=== PATIENT | female | born 1955 | race Caucasian/White ===

== ENCOUNTER 2018-07-08 16:31 | Emergency (ER) | payer OTHER ==
[~2018-07-08] VITALS: Ht 172.7 cm; Wt 55.8 kg
[~2018-07-08 16:31] MED LIST: FIORICET1 TAB PO; FLEXERIL10 MG PO; LAC PO; LEVAQUIN750 MG PO; PYRIDIUM200 MG PO
[2018-07-08 18:02] LABS: BASOPHIL % 0.3 % (0-2); PLATELET COUNT 188 x10^3mcL (130-400)
[2018-07-08 18:09] LABS: CALCIUM 9.3 mg/dL (8.5-10.1); CARBON DIOXIDE 28.2 mmol/L (21-32); CHLORIDE SERUM 105 mmol/L (98-107); CREATININE SERUM 0.8 mg/dL (0.6-1.0); GFR1 > 60 mL/min; GLUCOSE SERUM 171 mg/dL (74-106); POTASSIUM SERUM 4.1 mmol/L (3.5-5.1); SODIUM SERUM 144 mmol/L (136-145)
[2018-07-08 18:14] LABS: ALBUMIN 4.3 g/dL (3.4-5.0); ALKALINE PHOSPHATASE 72 U/L (46-116); ALT/SGPT 18 U/L (14-59); AST/SGOT 12 U/L (15-37); BILIRUBIN TOTAL 0.38 mg/dL (0.20-1.00); LIPASE 121 IU/L (73-393); TOTAL PROTEIN, SERUM 8.1 g/dL (6.4-8.2)
[2018-07-08 18:36] LABS: UA SPECIFIC GRAVITY >=1.030 (1.005-1.035); microscopic required? YES; urine erythrocyte NEGATIVE (NEGATIVE)
[2018-07-08 20:46] VITALS: BP 146/69
== END 2018-07-08 20:46 | disposition home or self-care (01) ==
LOC: ED 16:31
PROVIDERS: Emergency Medicine
DX: R10.32 Left lower quadrant pain (principal); I10 Essential (primary) hypertension; E11.9 Type 2 diabetes mellitus without complications
CPT/HCPCS: J1885; J7030

== ENCOUNTER 2018-07-31 14:54 | Emergency (ER) | payer MEDICAID ==
[2018-07-31 15:02] VITALS: Ht 162.6 cm
[2018-07-31 16:50] LABS: BASOPHIL % 0.6 % (0-2); PLATELET COUNT 207 x10^3mcL (130-400); RED CELL DISTRIBUTION WIDTH 13.7 % (11.5-14.5)
[2018-07-31 16:54] LABS: CALCIUM 9.3 mg/dL (8.5-10.1); CARBON DIOXIDE 31.2 mmol/L (21-32); CHLORIDE SERUM 100 mmol/L (98-107); CREATININE SERUM 0.9 mg/dL (0.6-1.0); GFR1 > 60 mL/min; GLUCOSE SERUM 131 mg/dL (74-106); POTASSIUM SERUM 3.8 mmol/L (3.5-5.1); SODIUM SERUM 138 mmol/L (136-145)
[2018-07-31 19:22] VITALS: BP 115/66
== END 2018-07-31 19:22 | disposition home or self-care (01) ==
LOC: ED 14:54
PROVIDERS: Emergency Medicine
DX: R51 Headache (principal); I10 Essential (primary) hypertension; E11.9 Type 2 diabetes mellitus without complications; Z86.73 Personal history of transient ischemic attack (TIA), and cerebral infarction without residual deficits; Z87.442 Personal history of urinary calculi
CPT/HCPCS: J1200; J1885; J2765; J3490

== ENCOUNTER 2018-08-16 12:51 | Emergency (ER) | payer OTHER ==
[~2018-08-16] VITALS: Ht 170.2 cm; Wt 56.7 kg
[2018-08-16 12:56] VITALS: Ht 170.2 cm; Wt 56.7 kg
[2018-08-16 13:58] LABS: CARBON DIOXIDE 26.8 mmol/L (21-32); CHLORIDE SERUM 101 mmol/L (98-107); CREATININE SERUM 0.8 mg/dL (0.6-1.0); GFR1 > 60 mL/min; GLUCOSE SERUM 256 mg/dL (74-106); POTASSIUM SERUM 3.9 mmol/L (3.5-5.1); SODIUM SERUM 137 mmol/L (136-145)
[2018-08-16 14:11] LABS: BASOPHIL % 0.3 % (0-2); PLATELET COUNT 205 x10^3mcL (130-400); RED CELL DISTRIBUTION WIDTH 13.1 % (11.5-14.5)
[2018-08-16 14:29] VITALS: BP 120/75
== END 2018-08-16 14:29 | disposition home or self-care (01) ==
LOC: ED 12:51
PROVIDERS: Emergency Medicine
DX: R51 Headache (principal); I10 Essential (primary) hypertension; E11.9 Type 2 diabetes mellitus without complications; Z87.442 Personal history of urinary calculi; Z86.73 Personal history of transient ischemic attack (TIA), and cerebral infarction without residual deficits
CPT/HCPCS: J2765; J3010

== ENCOUNTER 2018-10-06 21:27 | Emergency (ER) | payer OTHER ==
[2018-10-06 21:45] VITALS: Ht 167.6 cm
[2018-10-06 23:44] LABS: BASOPHIL % 0.5 % (0-2); PLATELET COUNT 202 x10^3mcL (130-400); RED CELL DISTRIBUTION WIDTH 13.3 % (11.5-14.5)
[2018-10-06 23:53] LABS: CALCIUM 9.2 mg/dL (8.5-10.1); CARBON DIOXIDE 31.3 mmol/L (21-32); CHLORIDE SERUM 97 mmol/L (98-107); CREATININE SERUM 0.9 mg/dL (0.6-1.0); GFR1 > 60 mL/min; GLUCOSE SERUM 168 mg/dL (74-106); POTASSIUM SERUM 3.9 mmol/L (3.5-5.1); SODIUM SERUM 138 mmol/L (136-145)
[2018-10-06 23:57] LABS: ALKALINE PHOSPHATASE 61 U/L (46-116); ALT/SGPT 29 U/L (14-59); AST/SGOT 18 U/L (15-37); BILIRUBIN TOTAL 0.3 mg/dL (0.20-1.00); LIPASE 129 IU/L (73-393); TOTAL PROTEIN, SERUM 7.8 g/dL (6.4-8.2)
[2018-10-07 00:44] VITALS: BP 135/77
== END 2018-10-07 00:44 | disposition home or self-care (01) ==
LOC: ED 21:27
PROVIDERS: Emergency Medicine
DX: R10.32 Left lower quadrant pain (principal); E11.9 Type 2 diabetes mellitus without complications; I10 Essential (primary) hypertension; Z86.73 Personal history of transient ischemic attack (TIA), and cerebral infarction without residual deficits; Z87.442 Personal history of urinary calculi; Z98.890 Other specified postprocedural states
CPT/HCPCS: J1885

== ENCOUNTER 2018-10-16 14:26 | Emergency (ER) | payer OTHER ==
[2018-10-16 15:59] VITALS: BP 153/81
== END 2018-10-16 15:59 | disposition home or self-care (01) ==
LOC: ED 14:26
DX: S09.8XXA Other specified injuries of head, initial encounter (principal); S20.219A Contusion of unspecified front wall of thorax, initial encounter; R10.9 Unspecified abdominal pain; M25.519 Pain in unspecified shoulder; I10 Essential (primary) hypertension; E11.9 Type 2 diabetes mellitus without complications; Z86.73 Personal history of transient ischemic attack (TIA), and cerebral infarction without residual deficits; Z87.442 Personal history of urinary calculi; W18.11XA Fall from or off toilet without subsequent striking against object, initial encounter; Y93.89 Activity, other specified; Y92.89 Other specified places as the place of occurrence of the external cause; Y99.8 Other external cause status
CPT/HCPCS: Q0092

== ENCOUNTER 2018-10-25 18:17 | Inpatient (IN) | payer OTHER ==
[~2018-10-25] VITALS: Ht 167.6 cm; Wt 70.5 kg
[2018-10-25 18:19] VITALS: Ht 167.6 cm; Wt 70.5 kg
[2018-10-25 19:00] LABS: CARBON DIOXIDE 28.7 mmol/L (21-32); CHLORIDE SERUM 99 mmol/L (98-107); CREATININE SERUM 0.8 mg/dL (0.6-1.0); GFR1 > 60 mL/min; GLUCOSE SERUM 217 mg/dL (74-106); POTASSIUM SERUM 4.3 mmol/L (3.5-5.1); SODIUM SERUM 138 mmol/L (136-145)
[2018-10-25 19:05] LABS: ALKALINE PHOSPHATASE 56 U/L (46-116); ALT/SGPT 22 U/L (14-59); AST/SGOT 14 U/L (15-37); BILIRUBIN TOTAL 0.3 mg/dL (0.20-1.00); TOTAL PROTEIN, SERUM 7.4 g/dL (6.4-8.2)
[2018-10-25 19:06] LABS: BASOPHIL % 0.7 % (0-2); PLATELET COUNT 215 x10^3mcL (130-400); RED CELL DISTRIBUTION WIDTH 13.3 % (11.5-14.5)
[2018-10-25 19:49] LABS: MAGNESIUM 1.7 mg/dL (1.8-2.4); PHOSPHOROUS 3.2 mg/dL (2.5-4.9)
[2018-10-25 20:46] VITALS: BP 115/73
[2018-10-26 04:25] VITALS: BP 130/68
[2018-10-26 06:06] LABS: BASOPHIL % 0.5 % (0-2); PLATELET COUNT 174 x10^3mcL (130-400); RED CELL DISTRIBUTION WIDTH 13.1 % (11.5-14.5)
[2018-10-26 06:26] LABS: CALCIUM 8.4 mg/dL (8.5-10.1); CARBON DIOXIDE 31.6 mmol/L (21-32); CHLORIDE SERUM 103 mmol/L (98-107); CREATININE SERUM 0.7 mg/dL (0.6-1.0); GFR1 > 60 mL/min; GLUCOSE SERUM 121 mg/dL (74-106); MAGNESIUM 1.9 mg/dL (1.8-2.4); PHOSPHOROUS 3.4 mg/dL (2.5-4.9); POTASSIUM SERUM 4.1 mmol/L (3.5-5.1); SODIUM SERUM 138 mmol/L (136-145)
[2018-10-26 08:45] VITALS: BP 102/43
[2018-10-26 11:25] LABS: microscopic required? NO
[2018-10-26 12:48] LABS: UA SPECIFIC GRAVITY 1.015 (1.005-1.035); urine erythrocyte NEGATIVE (NEGATIVE)
[2018-10-26 12:54] VITALS: BP 142/74
[2018-10-26 16:58] VITALS: BP 148/65
[2018-10-26 21:18] VITALS: BP 152/69
[2018-10-27 05:13] VITALS: BP 145/70
[2018-10-27 06:14] LABS: CALCIUM 9.2 mg/dL (8.5-10.1); CHLORIDE SERUM 104 mmol/L (98-107); CREATININE SERUM 0.7 mg/dL (0.6-1.0); GFR1 > 60 mL/min; GLUCOSE SERUM 149 mg/dL (74-106); POTASSIUM SERUM 4.3 mmol/L (3.5-5.1); SODIUM SERUM 143 mmol/L (136-145)
[2018-10-27 06:38] LABS: BASOPHIL % 0.7 % (0-2); PLATELET COUNT 198 x10^3mcL (130-400); RED CELL DISTRIBUTION WIDTH 12.9 % (11.5-14.5)
[2018-10-27 08:51] VITALS: BP 131/69
[2018-10-27 12:40] VITALS: BP 160/70
[2018-10-27 18:50] VITALS: BP 134/72
[2018-10-27 21:51] VITALS: BP 115/60
[2018-10-28 04:37] VITALS: BP 139/59
[2018-10-28 07:17] LABS: CALCIUM 8.9 mg/dL (8.5-10.1); CARBON DIOXIDE 30.8 mmol/L (21-32); CHLORIDE SERUM 104 mmol/L (98-107); CREATININE SERUM 0.8 mg/dL (0.6-1.0); GFR1 > 60 mL/min; GLUCOSE SERUM 116 mg/dL (74-106); MAGNESIUM 1.7 mg/dL (1.8-2.4); POTASSIUM SERUM 4.1 mmol/L (3.5-5.1); SODIUM SERUM 140 mmol/L (136-145)
[2018-10-28 07:45] LABS: BASOPHIL % 0.6 % (0-2); PLATELET COUNT 167 x10^3mcL (130-400); RED CELL DISTRIBUTION WIDTH 12.9 % (11.5-14.5)
[2018-10-28 09:30] VITALS: BP 114/78
[2018-10-28 17:48] VITALS: BP 156/76
[2018-10-28 18:40] VITALS: BP 140/69
[2018-10-28 21:09] VITALS: BP 159/68
[2018-10-29 06:00] VITALS: BP 145/72
[2018-10-29 06:12] LABS: BASOPHIL % 0.3 % (0-2); PLATELET COUNT 181 x10^3mcL (130-400); RED CELL DISTRIBUTION WIDTH 12.8 % (11.5-14.5)
[2018-10-29 06:41] LABS: CALCIUM 9.7 mg/dL (8.5-10.1); CARBON DIOXIDE 29.4 mmol/L (21-32); CHLORIDE SERUM 101 mmol/L (98-107); CREATININE SERUM 0.7 mg/dL (0.6-1.0); GFR1 > 60 mL/min; GLUCOSE SERUM 94 mg/dL (74-106); MAGNESIUM 1.7 mg/dL (1.8-2.4); SODIUM SERUM 140 mmol/L (136-145)
[2018-10-29 09:21] VITALS: BP 136/80
[2018-10-29 13:09] VITALS: BP 164/74
[2018-10-29] MEDS ORDERED: ISOSORBIDE MONO60 MG PO (15:01)
[2018-10-29] MEDS ORDERED: NOR5 PO (15:02)
[2018-10-29] MEDS ORDERED: RANEXA500 M2 PO (15:02)
[2018-10-29] MEDS ORDERED: BENICAR HCT1 TAB PO (15:03)
[2018-10-29 17:30] VITALS: BP 112/58
[2018-10-29 18:02] VITALS: BP 112/58
== END 2018-10-29 19:08 | disposition home or self-care (01) | DRG 203 ==
LOC: ED 18:17 → DU 19:26
PROVIDERS: Emergency Medicine; General Practice
DX: M94.0 Chondrocostal junction syndrome [Tietze] (principal); N17.0 Acute kidney failure with tubular necrosis; I50.21 Acute systolic (congestive) heart failure; E11.65 Type 2 diabetes mellitus with hyperglycemia; I69.954 Hemiplegia and hemiparesis following unspecified cerebrovascular disease affecting left non-dominant side; D68.69 Other thrombophilia; I11.0 Hypertensive heart disease with heart failure; E03.9 Hypothyroidism, unspecified; Z79.01 Long term (current) use of anticoagulants; I69.922 Dysarthria following unspecified cerebrovascular disease
CPT/HCPCS: 82962; 83880; A9500; J0360; J1815; J2270; J2405; J2785; J7030; Q0092

== ENCOUNTER 2018-10-31 17:04 | Emergency (ER) | payer OTHER ==
[~2018-10-31 17:04] MED LIST changes: +BENICAR HCT1 TAB PO; +ISOSORBIDE MONO60 MG PO; +NOR5 PO; +RANEXA500 M2 PO
[2018-10-31 18:26] VITALS: BP 148/74
== END 2018-10-31 18:26 | disposition home or self-care (01) ==
LOC: ED 17:04
DX: I10 Essential (primary) hypertension (principal); K21.9 Gastro-esophageal reflux disease without esophagitis; E11.9 Type 2 diabetes mellitus without complications; Z86.73 Personal history of transient ischemic attack (TIA), and cerebral infarction without residual deficits; Z87.442 Personal history of urinary calculi

== ENCOUNTER 2018-11-11 16:39 | Emergency (ER) | payer OTHER ==
[~2018-11-11] VITALS: Ht 165.1 cm; Wt 72.6 kg
[2018-11-11 16:54] VITALS: Ht 165.1 cm; Wt 72.6 kg
[2018-11-11 17:52] LABS: BASOPHIL % 0.5 % (0-2); PLATELET COUNT 207 x10^3mcL (130-400)
[2018-11-11 17:54] LABS: CALCIUM 8.6 mg/dL (8.5-10.1); CHLORIDE SERUM 102 mmol/L (98-107); CREATININE SERUM 0.9 mg/dL (0.6-1.0); GFR1 > 60 mL/min; GLUCOSE SERUM 214 mg/dL (74-106); SODIUM SERUM 137 mmol/L (136-145)
[2018-11-11 17:59] LABS: ALBUMIN 3.8 g/dL (3.4-5.0); ALKALINE PHOSPHATASE 62 U/L (46-116); ALT/SGPT 28 U/L (14-59); AST/SGOT 17 U/L (15-37); BILIRUBIN TOTAL 0.37 mg/dL (0.20-1.00); TOTAL PROTEIN, SERUM 7.3 g/dL (6.4-8.2)
[2018-11-11 19:51] VITALS: BP 138/77
== END 2018-11-11 19:51 | disposition home or self-care (01) ==
LOC: ED 16:39
PROVIDERS: Emergency Medicine
DX: R07.89 Other chest pain (principal); I10 Essential (primary) hypertension; E11.9 Type 2 diabetes mellitus without complications; Z86.73 Personal history of transient ischemic attack (TIA), and cerebral infarction without residual deficits; Z87.442 Personal history of urinary calculi; Z95.5 Presence of coronary angioplasty implant and graft
CPT/HCPCS: 36415; 83880; Q0092

== ENCOUNTER 2018-11-19 12:59 | Emergency (ER) | payer OTHER | END 2018-11-19 16:14 | disposition home or self-care (01) | LOC: ED 12:59 ==

== ENCOUNTER 2018-12-13 12:39 | Emergency (ER) | payer OTHER ==
[~2018-12-13] VITALS: Ht 170.2 cm; Wt 61.7 kg
[2018-12-13 12:44] VITALS: Ht 170.2 cm; Wt 61.7 kg
[2018-12-13 14:35] LABS: BASOPHIL % 0.5 % (0-2); PLATELET COUNT 189 x10^3mcL (130-400); RED CELL DISTRIBUTION WIDTH 12.7 % (11.5-14.5)
[2018-12-13 14:41] LABS: CALCIUM 8.5 mg/dL (8.5-10.1); CARBON DIOXIDE 29.2 mmol/L (21-32); CHLORIDE SERUM 100 mmol/L (98-107); CREATININE SERUM 0.7 mg/dL (0.6-1.0); GFR1 > 60 mL/min; GLUCOSE SERUM 265 mg/dL (74-106); POTASSIUM SERUM 4.6 mmol/L (3.5-5.1); SODIUM SERUM 135 mmol/L (136-145)
[2018-12-13 14:45] LABS: ALBUMIN 3.4 g/dL (3.4-5.0); ALKALINE PHOSPHATASE 71 U/L (46-116); ALT/SGPT 35 U/L (14-59); AST/SGOT 26 U/L (15-37); BILIRUBIN TOTAL 0.3 mg/dL (0.20-1.00); TOTAL PROTEIN, SERUM 6.9 g/dL (6.4-8.2)
[2018-12-13 15:52] VITALS: BP 153/84
== END 2018-12-13 15:52 | disposition home or self-care (01) ==
LOC: ED 12:39
PROVIDERS: Emergency Medicine
DX: R07.89 Other chest pain (principal); R47.01 Aphasia; Z86.73 Personal history of transient ischemic attack (TIA), and cerebral infarction without residual deficits; I10 Essential (primary) hypertension; E11.9 Type 2 diabetes mellitus without complications; Z87.442 Personal history of urinary calculi; I45.2 Bifascicular block
CPT/HCPCS: 36415; J7030; Q0092

== ENCOUNTER 2018-12-19 16:54 | Emergency (ER) | payer OTHER ==
[~2018-12-19] VITALS: Ht 170.2 cm; Wt 61.2 kg
[2018-12-19 17:10] VITALS: Ht 170.2 cm; Wt 61.2 kg
[2018-12-19 19:13] VITALS: BP 132/71
== END 2018-12-19 20:06 | disposition home or self-care (01) ==
LOC: ED 16:54
DX: K59.00 Constipation, unspecified (principal); Z86.73 Personal history of transient ischemic attack (TIA), and cerebral infarction without residual deficits; I10 Essential (primary) hypertension; E11.9 Type 2 diabetes mellitus without complications; Z87.442 Personal history of urinary calculi
CPT/HCPCS: 82962

== ENCOUNTER 2019-01-14 14:10 | Emergency (ER) | payer OTHER ==
[~2019-01-14] VITALS: Ht 167.6 cm; Wt 61.2 kg
[2019-01-14 14:16] VITALS: Ht 167.6 cm; Wt 61.2 kg
[2019-01-14 15:43] LABS: BASOPHIL % 0.6 % (0-2); PLATELET COUNT 241 x10^3mcL (130-400); RED CELL DISTRIBUTION WIDTH 12.8 % (11.5-14.5)
[2019-01-14 15:44] LABS: CARBON DIOXIDE 26.7 mmol/L (21-32); CHLORIDE SERUM 101 mmol/L (98-107); CREATININE SERUM 0.8 mg/dL (0.6-1.0); GFR1 > 60 mL/min; GLUCOSE SERUM 238 mg/dL (74-106); POTASSIUM SERUM 3.9 mmol/L (3.5-5.1); SODIUM SERUM 137 mmol/L (136-145)
[2019-01-14 15:51] LABS: ALBUMIN 3.7 g/dL (3.4-5.0); ALKALINE PHOSPHATASE 87 U/L (46-116); ALT/SGPT 34 U/L (14-59); AST/SGOT 20 U/L (15-37); BILIRUBIN TOTAL 0.3 mg/dL (0.20-1.00); TOTAL PROTEIN, SERUM 7.6 g/dL (6.4-8.2)
[2019-01-14 16:35] VITALS: BP 150/81
== END 2019-01-14 16:35 | disposition home or self-care (01) ==
LOC: ED 14:10
PROVIDERS: Emergency Medicine
DX: J20.9 Acute bronchitis, unspecified (principal); I10 Essential (primary) hypertension; E11.9 Type 2 diabetes mellitus without complications; Z86.73 Personal history of transient ischemic attack (TIA), and cerebral infarction without residual deficits; Z87.442 Personal history of urinary calculi; Z95.5 Presence of coronary angioplasty implant and graft
CPT/HCPCS: 36415; 87804; Q0092

== ENCOUNTER 2019-01-19 20:30 | Emergency (ER) | payer OTHER ==
[~2019-01-19] VITALS: Ht 167.6 cm; Wt 63.5 kg
[2019-01-19 20:48] VITALS: Ht 167.6 cm; Wt 63.5 kg
[2019-01-19 22:17] VITALS: BP 132/74
== END 2019-01-19 22:17 | disposition home or self-care (01) ==
LOC: ED 20:30
DX: S39.012A Strain of muscle, fascia and tendon of lower back, initial encounter (principal); R47.01 Aphasia; W18.39XA Other fall on same level, initial encounter; Y93.01 Activity, walking, marching and hiking; Y92.091 Bathroom in other non-institutional residence as the place of occurrence of the external cause; Y99.8 Other external cause status

== ENCOUNTER 2019-01-25 14:44 | Emergency (ER) | payer OTHER ==
[~2019-01-25] VITALS: Ht 172.7 cm; Wt 62.6 kg
[2019-01-25 14:59] VITALS: Ht 172.7 cm; Wt 62.6 kg
[2019-01-25 18:22] VITALS: BP 144/76
== END 2019-01-25 18:22 | disposition home or self-care (01) ==
LOC: ED 14:44
DX: E11.65 Type 2 diabetes mellitus with hyperglycemia (principal); I10 Essential (primary) hypertension; Z86.73 Personal history of transient ischemic attack (TIA), and cerebral infarction without residual deficits; Z87.442 Personal history of urinary calculi; Z95.5 Presence of coronary angioplasty implant and graft
CPT/HCPCS: 82962

== ENCOUNTER 2019-03-19 15:55 | Observation (INO) | payer OTHER ==
[~2019-03-19] VITALS: Ht 167.6 cm; Wt 61.3 kg
[2019-03-19 17:49] LABS: microscopic required? NO
[2019-03-19 18:06] LABS: CALCIUM 9.2 mg/dL (8.5-10.1); CARBON DIOXIDE 28.8 mmol/L (21-32); CHLORIDE SERUM 99 mmol/L (98-107); CREATININE SERUM 0.8 mg/dL (0.6-1.0); GFR1 > 60 mL/min; GLUCOSE SERUM 142 mg/dL (74-106); POTASSIUM SERUM 4.1 mmol/L (3.5-5.1); SODIUM SERUM 136 mmol/L (136-145)
[2019-03-19 18:07] LABS: BASOPHIL % 0.3 % (0-2); PLATELET COUNT 186 x10^3mcL (130-400); RED CELL DISTRIBUTION WIDTH 13.6 % (11.5-14.5)
[2019-03-19 18:09] LABS: urine erythrocyte NEGATIVE (NEGATIVE)
[2019-03-19 18:19] LABS: ALBUMIN 4.3 g/dL (3.4-5.0); ALKALINE PHOSPHATASE 77 U/L (46-116); ALT/SGPT 66 U/L (14-59); AST/SGOT 30 U/L (15-37); BILIRUBIN TOTAL 0.59 mg/dL (0.20-1.00); FREE T4 1.17 ng/dL (0.76-1.46); TOTAL PROTEIN, SERUM 7.8 g/dL (6.4-8.2)
[2019-03-19 18:33] LABS: AMPHETAMINE QUAL UR NONE DETECTED (See below)
[2019-03-19 21:44] LABS: MAGNESIUM 1.4 mg/dL (1.8-2.4); PHOSPHOROUS 3.2 mg/dL (2.5-4.9)
[2019-03-19 23:02] LABS: CHOLESTEROL/HDL RATIO 3.4
[2019-03-19 23:07] VITALS: BP 146/76
[2019-03-19 23:15] VITALS: Ht 167.6 cm; Wt 61.3 kg
[2019-03-20 05:58] VITALS: BP 130/69
[2019-03-20 06:55] LABS: BASOPHIL % 0.4 % (0-2); PLATELET COUNT 186 x10^3mcL (130-400); RED CELL DISTRIBUTION WIDTH 13.1 % (11.5-14.5)
[2019-03-20 07:02] LABS: CALCIUM 8.9 mg/dL (8.5-10.1); CARBON DIOXIDE 26.1 mmol/L (21-32); CHLORIDE SERUM 100 mmol/L (98-107); CREATININE SERUM 0.6 mg/dL (0.6-1.0); GFR1 > 60 mL/min; GLUCOSE SERUM 145 mg/dL (74-106); POTASSIUM SERUM 3.2 mmol/L (3.5-5.1); SODIUM SERUM 138 mmol/L (136-145)
[2019-03-20 08:56] VITALS: BP 115/71
[2019-03-20] MEDS ORDERED: LOSARTAN POTASS1 TAB PO (12:39)
[2019-03-20] MEDS ORDERED: OXYBUTYNIN CHLOR5 MG PO (12:39)
[2019-03-20] MEDS ORDERED: ATORVASTATIN CA40 M1 PO (12:41)
[2019-03-20] MEDS ORDERED: PAM10 PO (12:41)
[2019-03-20] MEDS ORDERED: PAROXETINE HCL20 M1 PO (12:42)
[2019-03-20 12:43] VITALS: BP 129/72
[2019-03-20 16:32] VITALS: BP 149/78
[2019-03-20 20:35] VITALS: BP 134/76
[2019-03-21 06:05] VITALS: BP 122/76
[2019-03-21 06:46] LABS: CALCIUM 9.1 mg/dL (8.5-10.1); CARBON DIOXIDE 29.2 mmol/L (21-32); CHLORIDE SERUM 100 mmol/L (98-107); CREATININE SERUM 0.6 mg/dL (0.6-1.0); GFR1 > 60 mL/min; GLUCOSE SERUM 168 mg/dL (74-106); MAGNESIUM 1.8 mg/dL (1.8-2.4); PHOSPHOROUS 3.5 mg/dL (2.5-4.9); SODIUM SERUM 137 mmol/L (136-145)
[2019-03-21 07:52] LABS: PLATELET COUNT 170 x10^3mcL (130-400); RED CELL DISTRIBUTION WIDTH 13.5 % (11.5-14.5)
[2019-03-21 07:53] LABS: BASOPHIL % 0.1 % (0-2)
[2019-03-21 09:14] VITALS: BP 128/71
[2019-03-21 12:39] VITALS: BP 117/69
[2019-03-21 13:51] VITALS: BP 117/69
[2019-03-21] MEDS ORDERED: ONDANSETRON4 M3 PO (14:05)
== END 2019-03-21 18:04 | disposition home or self-care (01) | DRG 203 ==
LOC: ED 15:55 → DU 21:23
PROVIDERS: Emergency Medicine; ADMIT Family Medicine
DX: M94.0 Chondrocostal junction syndrome [Tietze] (principal); K31.84 Gastroparesis; E83.42 Hypomagnesemia; E11.43 Type 2 diabetes mellitus with diabetic autonomic (poly)neuropathy; I11.9 Hypertensive heart disease without heart failure; G44.209 Tension-type headache, unspecified, not intractable; R74.0 Nonspecific elevation of levels of transaminase and lactic acid dehydrogenase [LDH]; I25.10 Atherosclerotic heart disease of native coronary artery without angina pectoris; I45.10 Unspecified right bundle-branch block; Z86.73 Personal history of transient ischemic attack (TIA), and cerebral infarction without residual deficits; Z95.5 Presence of coronary angioplasty implant and graft; Z68.21 Body mass index [BMI] 21.0-21.9, adult
CPT/HCPCS: 82962; 83880; 84439; 87804; G0378; J1885; J2270; J2405; J2550; J2765; J3010; J3475; J7050; J8597; Q0092

== ENCOUNTER 2019-03-31 18:24 | Emergency (ER) | payer OTHER ==
[~2019-03-31] VITALS: Ht 170.2 cm; Wt 62.1 kg
[~2019-03-31 18:24] MED LIST changes: +ATORVASTATIN CA40 M1 PO; +LOSARTAN POTASS1 TAB PO; +ONDANSETRON4 M3 PO; +OXYBUTYNIN CHLOR5 MG PO; +PAM10 PO; +PAROXETINE HCL20 M1 PO
[2019-03-31 18:44] VITALS: Ht 170.2 cm; Wt 62.1 kg
[2019-03-31 22:04] VITALS: BP 157/86
== END 2019-03-31 22:04 | disposition home or self-care (01) ==
LOC: ED 18:24
DX: S30.0XXA Contusion of lower back and pelvis, initial encounter (principal); I10 Essential (primary) hypertension; X58.XXXA Exposure to other specified factors, initial encounter; Y93.89 Activity, other specified; Y92.89 Other specified places as the place of occurrence of the external cause; Y99.8 Other external cause status
CPT/HCPCS: 72072; J1885

== ENCOUNTER 2019-04-10 16:03 | Emergency (ER) | payer OTHER ==
[~2019-04-10] VITALS: Ht 170.2 cm; Wt 61.7 kg
[2019-04-10 16:11] VITALS: BP 139/96; Ht 170.2 cm; Wt 61.7 kg
== END 2019-04-10 19:01 | disposition home or self-care (01) ==
LOC: ED 16:03
DX: G44.209 Tension-type headache, unspecified, not intractable (principal); I10 Essential (primary) hypertension; E11.9 Type 2 diabetes mellitus without complications; Z87.442 Personal history of urinary calculi; Z98.890 Other specified postprocedural states
CPT/HCPCS: J0780; J1885; J3010; Q0092

== ENCOUNTER 2019-04-17 20:24 | Emergency (ER) | payer OTHER ==
[~2019-04-17] VITALS: Ht 170.2 cm; Wt 62.2 kg
[2019-04-17 20:27] VITALS: Ht 170.2 cm; Wt 62.2 kg
[2019-04-17 21:03] LABS: BASOPHIL % 0.4 % (0-2); PLATELET COUNT 187 x10^3mcL (130-400); RED CELL DISTRIBUTION WIDTH 13.2 % (11.5-14.5)
[2019-04-17 21:09] LABS: CALCIUM 9.2 mg/dL (8.5-10.1); CARBON DIOXIDE 30.3 mmol/L (21-32); CHLORIDE SERUM 101 mmol/L (98-107); CREATININE SERUM 0.7 mg/dL (0.6-1.0); GFR1 > 60 mL/min; GLUCOSE SERUM 115 mg/dL (74-106); POTASSIUM SERUM 3.9 mmol/L (3.5-5.1); SODIUM SERUM 138 mmol/L (136-145)
[2019-04-17 21:13] LABS: ALKALINE PHOSPHATASE 71 U/L (46-116); ALT/SGPT 93 U/L (14-59); AST/SGOT 41 U/L (15-37); BILIRUBIN TOTAL 0.6 mg/dL (0.20-1.00); LIPASE 112 IU/L (73-393); TOTAL PROTEIN, SERUM 7.1 g/dL (6.4-8.2)
[2019-04-17 22:54] VITALS: BP 168/87
== END 2019-04-17 22:54 | disposition home or self-care (01) ==
LOC: ED 20:24
PROVIDERS: Emergency Medicine
DX: G89.29 Other chronic pain (principal); R10.32 Left lower quadrant pain
CPT/HCPCS: 36415

== ENCOUNTER 2019-05-04 15:15 | Inpatient (IN) | payer OTHER ==
[~2019-05-04] VITALS: Ht 172.7 cm; Wt 61.7 kg
[2019-05-04 15:27] VITALS: Ht 172.7 cm; Wt 61.7 kg
--- NOTE | 2019-05-04 16:02 | NUR ---
PATIENT PRESENTS TO ED WITH C/O LLQ ABDOMINAL PAIN THAT PATIENT DESCRIBES SHARP SINCE YESTERDAY. PATIENT STS SHE HAS BEEN HAVING NAUSEA AND VOMITTING. DENIES PAIN ELSEWHERE. AWAITING MSE
[2019-05-04 16:24] LABS: BASOPHIL % 0.4 % (0-2); PLATELET COUNT 209 x10^3mcL (130-400); RED CELL DISTRIBUTION WIDTH 13.3 % (11.5-14.5)
--- NOTE | 2019-05-04 16:25 | NUR ---
INITIATED NS BOLUS AND MEDICATED PT FOR PAIN. PLEASE SEE EMAR .
[2019-05-04 16:36] LABS: microscopic required? NO
--- NOTE | 2019-05-04 16:42 | NUR ---
PT SENT TO CT
[2019-05-04 16:43] LABS: CALCIUM 8.8 mg/dL (8.5-10.1); CARBON DIOXIDE 27.5 mmol/L (21-32); CHLORIDE SERUM 99 mmol/L (98-107); CREATININE SERUM 0.9 mg/dL (0.6-1.0); GFR1 > 60 mL/min; GLUCOSE SERUM 322 mg/dL (74-106); POTASSIUM SERUM 4.2 mmol/L (3.5-5.1); SODIUM SERUM 136 mmol/L (136-145)
[2019-05-04 16:48] LABS: ALBUMIN 3.9 g/dL (3.4-5.0); ALKALINE PHOSPHATASE 85 U/L (46-116); ALT/SGPT 101 U/L (14-59); AST/SGOT 40 U/L (15-37); BILIRUBIN TOTAL 0.4 mg/dL (0.20-1.00); LIPASE 224 IU/L (73-393); TOTAL PROTEIN, SERUM 7.3 g/dL (6.4-8.2)
[2019-05-04 16:50] LABS: UA SPECIFIC GRAVITY 1.015 (1.005-1.035); urine erythrocyte NEGATIVE (NEGATIVE)
--- NOTE | 2019-05-04 17:38 | NUR ---
PT RESTING AT BEDSIDE IN NAD. FAMILY AT BEDSIDE.
--- NOTE | 2019-05-04 18:18 | NUR ---
PT RESTING AT BEDSIDE IN NAD
--- NOTE | 2019-05-04 19:09 | NUR ---
REPORT OFF TO JESUS SPRINGER
--- NOTE | 2019-05-04 19:10 | NUR ---
RECEIVED REPORT FROM ASIA LEE AND ASSUMED CARE OF PATIENT. PT. LAYING ON GURNEY IN POSITON OF COMFORT. BREATHING EQUAL AND UNLABORED. PT. SPEAKING IN FULL CLEAR SENTENCES, NOT IN ANY APPARENT DISTESS. ON FULL RESULTS TECHNICIAN, NS INFUSING ON IV PUMP, IV SITE CLEAN, DRY AND INTACT. NO S/S OF INFILTRATION. PT. REPORTS 01/19 ABD PAIN. FAMILY AT BEDSIDE. CALL LIGHT IN REACH. SAFETY PRECAUTIONS IN PLACE. WILL CONTINUE TO MONITOR.
--- NOTE | 2019-05-04 19:50 | NUR ---
UNABLE TO COMPLETE MED REC, FAMILY STATES LIST OF MEDS ARE AT HOME AND WILL BRING IT IN LATER.
--- NOTE | 2019-05-04 20:06 | NUR ---
REPORT GIVEN TO YUE LEE ON MED SURG UNIT FOR FURTHER CARE OF PATIENT ALL QUESTIONS AND CONCERNS ADDRESSED.
--- NOTE | 2019-05-04 20:40 | NUR ---
PT. TRANSPRORTED TO [facility] DEPARTMENT VIA [facility] BY EMT SHARLENE. PT. STABLE AT TIME OF TRANSFER.
[2019-05-04 20:54] LABS: MAGNESIUM 2.2 mg/dL (1.8-2.4); PHOSPHOROUS 1.8 mg/dL (2.5-4.9)
[2019-05-04 20:56] LABS: CHOLESTEROL/HDL RATIO 4.7
[2019-05-04 21:03] VITALS: BP 133/98
--- NOTE | 2019-05-04 21:14 | NUR ---
RECEIVED PT FROM ER, PT ADMIT FOR DIVERTICULITIS. PT IS CONFUSED AT THIS MOMENT. PT UNABLE TO TELL NAME, PLACE, TIME, PT STATE SOMETIME SHE FORGET. MAYBE SHE WILL REMEMBER LATER. BUT PT IS ABLE TO FOLLOW COMMAND AT THIS MOMENT, LUNG SOUND CLEAR BILATERAL, NO COUGH, NO SOB, DENY ANY CHEST PAIN OR DISCOMFORT, C/O LEFT LOWER QUADRANT ABD PAIN 4/10, BOWEL SOUND PRESENT ALL 4 QUADRANTS, NO DISTENTION, PEDAL PULSE PRESENT BOTH FEET, NO EDEMA, IV AT LEFT AC, NO LEAKING, NO INFILTRAITON. CALLED THE , RYAN JANE TRIED TO GET MORE INFORMATION. NO ONE ANSWER THE PHONE, BUT LEFT THE MESSAGE, ALL ADLS ASSIST, ALL NEED MET, CALL LIGHT IN REACH, WILL CONTINUE TO MONITOR.
[2019-05-04] MEDS ORDERED: COUMADIN5 MG PO (22:02)
[2019-05-04] MEDS ORDERED: GLU500 PO (22:03)
[2019-05-04] MEDS ORDERED: NIT0.4 SL (22:03)
--- NOTE | 2019-05-04 22:08 | NUR ---
TALKED TO MAGGIE.BUCK, GET ALL PT INFORMATION, UPDATE ON ASSESSMENT AND UPDATE MEDICATION LIST, INFORM THE PRIMARY NURSE.
--- NOTE | 2019-05-04 23:37 | NUR ---
PROVIDED PT WITH PRN TYLENOL FOR MODERATE PAIN. PT SLEEPING CALMLY IN BED. CHEST RISE AND FALL. WILL CONTINUE TO MONITOR.
[2019-05-05 05:33] VITALS: BP 139/71
--- NOTE | 2019-05-05 07:27 | NUR ---
ALL CARE ENDORSED TO JESUS HULL. ALL QUESTIONS AND CONCERNS ANSWERED.
[2019-05-05 07:42] LABS: BASOPHIL % 0.5 % (0-2); PLATELET COUNT 149 x10^3mcL (130-400); RED CELL DISTRIBUTION WIDTH 13.4 % (11.5-14.5)
--- NOTE | 2019-05-05 07:46 | NUR ---
RECEIVED PT RESTING IN BED. AWAKE, ALERT, DISORIENTED. ABLE TO FOLLOW COMMANDS. RESP EVEN AND UNLABORED ON RA. C/O LLQ MILD PAIN BUT TOLERABLE. IVF INFUSING, NO REDNESS OR SWELLING NOTED. CANE AT BEDSIDE. FALL PRECAUTIONS. BED IN LOW POSITION, CALL LIGHT WITHIN REACH. WILL CONTINUE TO MONITOR.
[2019-05-05 08:10] LABS: CALCIUM 8.1 mg/dL (8.5-10.1); CARBON DIOXIDE 29.5 mmol/L (21-32); CHLORIDE SERUM 108 mmol/L (98-107); CREATININE SERUM 0.5 mg/dL (0.6-1.0); GFR1 > 60 mL/min; GLUCOSE SERUM 132 mg/dL (74-106); POTASSIUM SERUM 3.9 mmol/L (3.5-5.1); SODIUM SERUM 142 mmol/L (136-145)
[2019-05-05 08:30] VITALS: BP 120/76
--- NOTE | 2019-05-05 10:29 | NUR ---
PT HAD EPISODE OF URINARY INCONTINENCE. PT CLEANED, GIVEN NEW GOWN AND LINEN CHANGED. FALL PRECAUTIONS IN PLACE. CALL LIGHT WITHIN REACH. BED ALARM ON. WILL CONTINUE TO MONITOR.
[2019-05-05] MEDS ORDERED: LEVOFLOXACIN500 M1 PO (12:30)
[2019-05-05] MEDS ORDERED: FLA500 PO (12:30)
[2019-05-05] MEDS ORDERED: METAMUCIL0.4 GM PO (12:32)
--- NOTE | 2019-05-05 14:10 | NUR ---
PT SITTING UP IN BED EATING LATE LUNCH. NO ACUTE DISTRESS. C/O MILD LLQ ABD PAIN BUT TOLERABLE. IVF INFUSING, NO REDNESS OR SWELLING NOTED TO IV SITE. FALL PRECAUTIONS IN PLACE. CALL LIGHT WITHIN REACH. WILL CONTINUE TO MONITOR.
[2019-05-05] MEDS ORDERED: MIRALAX17 GM/Dose PO (14:56)
[2019-05-05 15:44] VITALS: BP 120/76
--- NOTE | 2019-05-05 17:12 | NUR ---
PT AWAKE, CONFUSED. NO ACUTE DISTRESS. VSS. PT'S PRESENT FOR DISCHARGE EDUCATION. DISCHARGE INSTRUCTIONS PROVIDED, PT'S VERBALIZED UNDERSTANDING. INSTRUCTED PT'S TO HAVE PT FOLLOW UP WITH PCP. IV DC'D WITH CATHETER INTACT. RX GIVEN. BELONGINGS WITH PT. BRANDEN MCCORMICK ACCOMPANIED PT TO LOBBY.
== END 2019-05-05 17:12 | disposition home or self-care (01) | DRG 244 ==
LOC: ED 15:15 → MU 19:48
PROVIDERS: Emergency Medicine; ADMIT General Practice
DX: K57.30 Diverticulosis of large intestine without perforation or abscess without bleeding (principal); E11.65 Type 2 diabetes mellitus with hyperglycemia; K59.00 Constipation, unspecified; I10 Essential (primary) hypertension; G62.9 Polyneuropathy, unspecified; E78.5 Hyperlipidemia, unspecified; E83.39 Other disorders of phosphorus metabolism; R74.0 Nonspecific elevation of levels of transaminase and lactic acid dehydrogenase [LDH]; Z87.442 Personal history of urinary calculi; Z68.21 Body mass index [BMI] 21.0-21.9, adult; Z79.01 Long term (current) use of anticoagulants; Z79.84 Long term (current) use of oral hypoglycemic drugs; Z95.5 Presence of coronary angioplasty implant and graft; Z86.73 Personal history of transient ischemic attack (TIA), and cerebral infarction without residual deficits
CPT/HCPCS: 82962; G0378; J1815; J1885; J2270; J2405; J2543; J3010; J7030; J7040; Q0092

== ENCOUNTER 2019-06-20 22:58 | Emergency (ER) | payer MEDICAID ==
[~2019-06-20] VITALS: Ht 167.6 cm; Wt 72.6 kg
[~2019-06-20 22:58] MED LIST changes: +COUMADIN5 MG PO; +FLA500 PO; +GLU500 PO; +LEVOFLOXACIN500 M1 PO; +METAMUCIL0.4 GM PO; +MIRALAX17 GM/Dose PO; +NIT0.4 SL
[2019-06-20 23:07] VITALS: Ht 167.6 cm; Wt 72.6 kg
[2019-06-21 02:14] VITALS: BP 143/75
== END 2019-06-21 02:14 | disposition home or self-care (01) ==
LOC: ED 22:58
DX: G89.29 Other chronic pain (principal); R05 Cough; I10 Essential (primary) hypertension; E11.9 Type 2 diabetes mellitus without complications; Z86.73 Personal history of transient ischemic attack (TIA), and cerebral infarction without residual deficits; Z98.890 Other specified postprocedural states; Z87.442 Personal history of urinary calculi
CPT/HCPCS: J2765

== ENCOUNTER 2019-06-29 15:17 | Emergency (ER) | payer MEDICAID ==
[~2019-06-29] VITALS: Ht 170.2 cm; Wt 61.7 kg
[2019-06-29 15:27] VITALS: Ht 170.2 cm; Wt 61.7 kg
[2019-06-29 18:49] VITALS: BP 143/88
== END 2019-06-29 18:49 | disposition home or self-care (01) ==
LOC: ED 15:17
DX: S39.012A Strain of muscle, fascia and tendon of lower back, initial encounter (principal); S29.8XXA Other specified injuries of thorax, initial encounter; I10 Essential (primary) hypertension; E11.9 Type 2 diabetes mellitus without complications; Z87.442 Personal history of urinary calculi; W18.39XA Other fall on same level, initial encounter; Y93.89 Activity, other specified; Y92.89 Other specified places as the place of occurrence of the external cause; Y99.8 Other external cause status

== ENCOUNTER 2019-07-07 13:13 | Emergency (ER) | payer MEDICAID ==
[~2019-07-07] VITALS: Ht 167.6 cm; Wt 62.6 kg
[2019-07-07 13:35] VITALS: Ht 167.6 cm; Wt 62.6 kg
[2019-07-07 14:15] LABS: BASOPHIL % 0.4 % (0-2); PLATELET COUNT 231 x10^3mcL (130-400); RED CELL DISTRIBUTION WIDTH 12.8 % (11.5-14.5)
[2019-07-07 14:26] LABS: CALCIUM 8.7 mg/dL (8.5-10.1); CARBON DIOXIDE 29.1 mmol/L (21-32); CHLORIDE SERUM 99 mmol/L (98-107); CREATININE SERUM 0.7 mg/dL (0.6-1.0); GFR1 > 60 mL/min; GLUCOSE SERUM 163 mg/dL (74-106); POTASSIUM SERUM 3.9 mmol/L (3.5-5.1); SODIUM SERUM 137 mmol/L (136-145)
[2019-07-07 14:31] LABS: ALBUMIN 3.8 g/dL (3.4-5.0); ALKALINE PHOSPHATASE 101 U/L (46-116); ALT/SGPT 38 U/L (14-59); AST/SGOT 21 U/L (15-37); BILIRUBIN TOTAL 0.52 mg/dL (0.20-1.00); LIPASE 95 IU/L (73-393); TOTAL PROTEIN, SERUM 7.6 g/dL (6.4-8.2)
[2019-07-07 16:52] VITALS: BP 152/82
== END 2019-07-07 16:49 | disposition home or self-care (01) ==
LOC: ED 13:13
DX: R10.9 Unspecified abdominal pain (principal); Z87.19 Personal history of other diseases of the digestive system
CPT/HCPCS: 36415; 90715

== ENCOUNTER 2019-07-08 20:15 | Emergency (ER) | payer MEDICAID ==
[~2019-07-08] VITALS: Ht 170.2 cm; Wt 63.0 kg
[2019-07-08 20:45] LABS: BASOPHIL % 0.4 % (0-2); PLATELET COUNT 227 x10^3mcL (130-400)
[2019-07-08 20:55] LABS: CALCIUM 8.5 mg/dL (8.5-10.1); CARBON DIOXIDE 27.7 mmol/L (21-32); CHLORIDE SERUM 98 mmol/L (98-107); CREATININE SERUM 0.7 mg/dL (0.6-1.0); GFR1 > 60 mL/min; GLUCOSE SERUM 144 mg/dL (74-106); POTASSIUM SERUM 3.5 mmol/L (3.5-5.1); SODIUM SERUM 136 mmol/L (136-145)
[2019-07-08 21:00] LABS: ALBUMIN 3.7 g/dL (3.4-5.0); ALKALINE PHOSPHATASE 93 U/L (46-116); ALT/SGPT 39 U/L (14-59); AST/SGOT 23 U/L (15-37); BILIRUBIN TOTAL 0.4 mg/dL (0.20-1.00); TOTAL PROTEIN, SERUM 7.5 g/dL (6.4-8.2)
[2019-07-08 23:44] VITALS: BP 154/88
== END 2019-07-08 23:44 | disposition home or self-care (01) ==
LOC: ED 20:15
PROVIDERS: Emergency Medicine
DX: R07.89 Other chest pain (principal); I10 Essential (primary) hypertension; E11.9 Type 2 diabetes mellitus without complications; Z98.890 Other specified postprocedural states; Z87.442 Personal history of urinary calculi
CPT/HCPCS: 36415; Q0092

== ENCOUNTER 2019-07-17 16:55 | Emergency (ER) | payer MEDICAID ==
[~2019-07-17] VITALS: Ht 172.7 cm; Wt 61.7 kg
[2019-07-17 20:02] LABS: BASOPHIL % 0.5 % (0-2); PLATELET COUNT 216 x10^3mcL (130-400); RED CELL DISTRIBUTION WIDTH 12.7 % (11.5-14.5)
[2019-07-17 20:15] LABS: CALCIUM 8.5 mg/dL (8.5-10.1); CHLORIDE SERUM 100 mmol/L (98-107); CREATININE SERUM 0.8 mg/dL (0.6-1.0); GFR1 > 60 mL/min; GLUCOSE SERUM 166 mg/dL (74-106); POTASSIUM SERUM 3.6 mmol/L (3.5-5.1); SODIUM SERUM 138 mmol/L (136-145)
[2019-07-17 20:18] LABS: ALKALINE PHOSPHATASE 125 U/L (46-116); ALT/SGPT 34 U/L (14-59); AMYLASE 56 U/L (25-115); AST/SGOT 16 U/L (15-37); BILIRUBIN TOTAL 0.46 mg/dL (0.20-1.00); LIPASE 85 IU/L (73-393); TOTAL PROTEIN, SERUM 7.9 g/dL (6.4-8.2)
[2019-07-17 20:18] LABS: microscopic required? NO
[2019-07-17 20:27] LABS: UA SPECIFIC GRAVITY 1.015 (1.005-1.035); urine erythrocyte NEGATIVE (NEGATIVE)
[2019-07-18 00:31] VITALS: BP 130/78
== END 2019-07-18 00:31 | disposition home or self-care (01) ==
LOC: ED 16:55
PROVIDERS: Emergency Medicine
DX: R11.0 Nausea (principal); R10.30 Lower abdominal pain, unspecified; I10 Essential (primary) hypertension; E11.9 Type 2 diabetes mellitus without complications; Z86.73 Personal history of transient ischemic attack (TIA), and cerebral infarction without residual deficits; Z87.442 Personal history of urinary calculi
CPT/HCPCS: 36415; J7040; Q9967

== ENCOUNTER 2019-08-11 11:51 | Inpatient (IN) | payer MEDICAID ==
[~2019-08-11] VITALS: Ht 170.2 cm; Wt 66.8 kg
[2019-08-11 11:55] VITALS: Ht 170.2 cm; Wt 66.8 kg
--- NOTE | 2019-08-11 12:15 | NUR ---
PT. BIB FAMILY FOR LEFT SIDE CHEST PAIN SINCE 11AM TODAY. PER PT. HAS HX OF CVA 1YR AGO AND HAS DIFFICULITY SPEAKING. PT. SEEN RUBBING LEFT SIDE OF CHEST. DENIES N/V. PT. AAOX4, BREATHING E/U. PLACED ON FULL BILINGUAL SPANISH INBOUND SALES. AWAITING MSE
[2019-08-11 12:55] LABS: BASOPHIL % 0.6 % (0-2); PLATELET COUNT 202 x10^3mcL (130-400); RED CELL DISTRIBUTION WIDTH 12.9 % (11.5-14.5)
[2019-08-11 13:05] LABS: CALCIUM 8.2 mg/dL (8.5-10.1); CARBON DIOXIDE 26.3 mmol/L (21-32); CHLORIDE SERUM 102 mmol/L (98-107); CREATININE SERUM 0.9 mg/dL (0.6-1.0); GFR1 > 60 mL/min; GLUCOSE SERUM 397 mg/dL (74-106); POTASSIUM SERUM 3.8 mmol/L (3.5-5.1); SODIUM SERUM 136 mmol/L (136-145)
[2019-08-11 13:10] LABS: ALBUMIN 3.4 g/dL (3.4-5.0); ALKALINE PHOSPHATASE 110 U/L (46-116); ALT/SGPT 25 U/L (14-59); AST/SGOT 16 U/L (15-37); BILIRUBIN TOTAL 0.4 mg/dL (0.20-1.00); TOTAL PROTEIN, SERUM 6.9 g/dL (6.4-8.2)
--- NOTE | 2019-08-11 14:02 | NUR ---
PT. LAYING ON GURNEY IN POSITION OF COMFORT. BREATHING E/U. PT. CONTINUES TO BE ON CARDIC MONITOR. NOT IN ANY APPARENT DISTRESS AT THIS TIME. CALL LIGHT IN REACH. FAMILY AT BEDSIDE. WILL CONTINUE TO MONITOR
--- NOTE | 2019-08-11 14:20 | NUR ---
RESPIRATORY BEDSIDE, SUCTIONING PT. PT SATS AT 99% ON ROOM AIR.
--- NOTE | 2019-08-11 14:31 | NUR ---
REPORT GIVEN TO JESUS SANDOVAL TO ASSUME CARE OF THE PT.
--- NOTE | 2019-08-11 15:00 | NUR ---
PT. TRANSFERED TO [facility] FLOOR FOR FUTHER EVAL AND CARE. TRANSPORTED BY JOAN Aragon AND KINDRA CANAS. PT. STABLE AT TIME OF TRANSFER
[2019-08-11 15:20] VITALS: BP 127/68
--- NOTE | 2019-08-11 15:33 | NUR ---
RECEIVED FROM ER, TRANSPORTED VIA [facility]. AWAKE AND ALERT, AMBULATED WITH SLOW GAIT USING CANE AND WITH ASSISTANCE FROM [facility] IN HALLWAY TO BED. LEFT SIDED WEAKNESS. WITH FACIAL DROOP. HX OF CVA. PT UNABLE TO ANSWER QUESTIONS APPROPRIATELY. STATED THAT THIS NURSE IS HER SON. DISORIENTED AND CONFUSED. KEEPS LAUGHING. BREATHING EVEN AND UNLABORED ON ROOM AIR. LUNG SOUNDS CLEAR. UNABLE TO OBTAIN HISTORY FROM PT. CALLED BUCK SERRANO, LISTED PT TO NOTIFY. PER BUCK SERRANO, HE IS PT'S . OBTAINED HX. HE STATED HE WILL COMING IN SOON. INSTRUCTED PT ON USE OF CALL LIGHT TO CALL FOR ASSISTANCE. PLACED WITHIN EASY REACH. BED ALARM ON. ENDORSED TO NURSE LORI
--- NOTE | 2019-08-11 17:37 | NUR ---
AMBULATED TO BATHROOM WITH WALKER. GAIT UNSTEADY. INCONTINENT OF URINE. SKIN CARE DONE AND GOWN CHANGED.
--- NOTE | 2019-08-11 17:39 | NUR ---
IN BED RESTING. CALL CEDEÑO WITHIN REACH. BED ALARM ON.
[2019-08-11 18:32] LABS: CHOLESTEROL/HDL RATIO 3.6
--- NOTE | 2019-08-11 19:23 | NUR ---
HANDOFF REPORT GIVEN TO JESUS MCPHERSON.
[2019-08-11 19:43] VITALS: BP 130/70
--- NOTE | 2019-08-11 20:10 | NUR ---
SPOKE WITH MALLORY BENAVIDES TO D/C PT PER ORDERED BY DR. PAEZ EARLIER, SECOND TROP NEGATIVE.
--- NOTE | 2019-08-11 20:28 | NUR ---
SPOKE WITH MALLORY BEAUCHAMP TO D/C PT SINCE SECOND TROP IS NEGATIVE.
--- NOTE | 2019-08-11 21:44 | NUR ---
PT D/C VIA WHEELCHAIR ACCOMPANIED BY , DAUGHTER, AND CITY CARRIER. NO ACUTE DISTRESS OBSERVED. ALL BELONGINGS WITH PT. NECESSARY D/C PAPERWORKS SIGNED BY PT'S . IV TO D/C WITH CATH INTACT. TELE REMOVED AND RETURNED TO MONITOR STATION.
== END 2019-08-11 21:45 | disposition home or self-care (01) | DRG 198 ==
LOC: ED 11:51 → DU 14:13
PROVIDERS: Emergency Medicine; ADMIT Internal Medicine Pulmonary Disease
DX: R07.89 Other chest pain (principal); I25.10 Atherosclerotic heart disease of native coronary artery without angina pectoris; E11.65 Type 2 diabetes mellitus with hyperglycemia; I11.9 Hypertensive heart disease without heart failure; I69.321 Dysphasia following cerebral infarction; E78.5 Hyperlipidemia, unspecified; E03.9 Hypothyroidism, unspecified; Z79.01 Long term (current) use of anticoagulants; Z87.442 Personal history of urinary calculi; Z95.5 Presence of coronary angioplasty implant and graft
CPT/HCPCS: G0378; Q0092

== ENCOUNTER 2019-08-24 18:16 | Inpatient (IN) | payer MEDICAID ==
[~2019-08-24] VITALS: Ht 170.2 cm; Wt 62.1 kg
[2019-08-24 18:25] VITALS: Ht 170.2 cm; Wt 62.1 kg
[2019-08-24 19:16] LABS: BASOPHIL % 0.6 % (0-2); PLATELET COUNT 183 x10^3mcL (130-400); RED CELL DISTRIBUTION WIDTH 13.5 % (11.5-14.5)
--- NOTE | 2019-08-24 19:16 | NUR ---
PT RESTING IN BED, AAOX4 WITH C/O 5/10 PRESSURE LIKE CP SINCE 173 TODAY WITH DIZZINESS. PT DENIES ANY N/V/D/C, RESP ILLNESS, URINARY PROBLEMS OR FEVERS/CHILLS AT THIS TIME. PT NOTED WITH NO SIGNS OF DISTRESS. FAMILY AT BEDSIDE.
[2019-08-24 19:35] LABS: CALCIUM 8.9 mg/dL (8.5-10.1); CARBON DIOXIDE 22.1 mmol/L (21-32); CHLORIDE SERUM 102 mmol/L (98-107); CREATININE SERUM 0.7 mg/dL (0.6-1.0); GFR1 > 60 mL/min; GLUCOSE SERUM 123 mg/dL (74-106); POTASSIUM SERUM 3.6 mmol/L (3.5-5.1); SODIUM SERUM 137 mmol/L (136-145)
[2019-08-24 19:39] LABS: ALBUMIN 3.7 g/dL (3.4-5.0); ALKALINE PHOSPHATASE 91 U/L (46-116); ALT/SGPT 17 U/L (14-59); AST/SGOT 10 U/L (15-37); BILIRUBIN TOTAL 0.44 mg/dL (0.20-1.00); TOTAL PROTEIN, SERUM 7.2 g/dL (6.4-8.2)
--- NOTE | 2019-08-24 20:42 | NUR ---
PT RESTING IN BED WITH EYES CLOSED WITH FAMILY AT BEDSIDE. NO SIGNS OF DISTRESS.
--- NOTE | 2019-08-24 21:23 | NUR ---
PT RESTING IN BED WITH NO SIGNS OF DISTRESS.
--- NOTE | 2019-08-24 22:46 | NUR ---
REPORT GIVEN TO CARIN LEE.
--- NOTE | 2019-08-24 22:55 | NUR ---
RECEIVED PT VIA GURNEY FROM E/D, ACCOMPANIED BY RN AND TRANSPORTER. PT ALERT, AWAKE, CONFUSED X 4, SPEAKS URDU, HAS FLIGHT OF IDEAS ("I AM A STICK BRANCH"), SLOW TO RESPOND, HAS PBA-LIKE EPISODES (SUDDEN BURSTS OF LAUGHTER), [place] TO BOTH EARS. PT W/ GENERALIZED WEAKNESS BUT ABLE TO AMB W/ CANE W/ SLOW, STEADY GAIT; FALL RISK PROTOCOL IN PLACE. ON TELE # 24, HR 58, SB + BBB, INTERMITTENT CHEST PAIN, UNABLE TO STATE QUALITY, EXACERBATING AND RELIEVING FACTORS, AND GOAL. SCD BY BEDSIDE. NO ACUTE RESPIRATORY DISTRESS NOTED. ABD SOFT, ROUND, NON-TENDER, NORMOACTIVE BOWEL SOUNDS X 4 QUADS, LAST BM UNKNOWN D/T CONFUSED; PT W/ HX DYSPHAGIA, ASPIRATION PRECAUTIONS IN PLACE. IV SITE RH 22G, CDI. UNABLE TO ORIENT PT D/T CONFUSED. SIDE RAILS UP X 2, BED IN LOW POSITION, CALL LIGHT WITHIN REACH. WILL ENDORSE TO JESUS DEL ROSARIO.
[2019-08-24 23:49] VITALS: BP 126/71
--- NOTE | 2019-08-25 02:00 | NUR ---
PT REQUESTED FOR SOMETHING TO EAT. APPLE SAUCE GIVEN.
--- NOTE | 2019-08-25 02:45 | NUR ---
PT STILL AWAKE AND RESTING IN BED. SHE REMAINS CONFUSED AND W/ BURSTS OF LAUGHTER NOTED. BED ALARM ON FOR SAFETY.
--- NOTE | 2019-08-25 04:59 | NUR ---
PT APPEARS TO BE SLEEPING COMFORTABLY. SHE HAD NO C/O CHEST PAIN. NO EPISODE OF SOB. PT ABLE TO AMBULATE W/ ASSISTANCE. ALL NEEDS ATTENDED TO.
[2019-08-25 05:22] VITALS: BP 112/72
[2019-08-25 06:20] LABS: BASOPHIL % 0.7 % (0-2); PLATELET COUNT 167 x10^3mcL (130-400); RED CELL DISTRIBUTION WIDTH 13.6 % (11.5-14.5)
[2019-08-25 06:53] LABS: ALBUMIN 3.4 g/dL (3.4-5.0); ALKALINE PHOSPHATASE 83 U/L (46-116); ALT/SGPT 15 U/L (14-59); AST/SGOT 13 U/L (15-37); BILIRUBIN TOTAL 0.58 mg/dL (0.20-1.00); CALCIUM 8.6 mg/dL (8.5-10.1); CARBON DIOXIDE 26.6 mmol/L (21-32); CHLORIDE SERUM 104 mmol/L (98-107); CREATININE SERUM 0.6 mg/dL (0.6-1.0); GFR1 > 60 mL/min; GLUCOSE SERUM 130 mg/dL (74-106); POTASSIUM SERUM 3.4 mmol/L (3.5-5.1); SODIUM SERUM 141 mmol/L (136-145); TOTAL PROTEIN, SERUM 6.7 g/dL (6.4-8.2)
--- NOTE | 2019-08-25 07:20 | NUR ---
RECEIVED HAND OFF REPORT FROM NIGHT NURSE. PATIENT AWAKE TO VOICE FROM SLEEP, SAUDI ARABIAN SPEEKING MAINLY, ABLE TO MAKE NEEDS KNOWN. NO COMPLAINTS AT THIS TIME. CALL LIGHT WITHIN REACH, TELE MONITOR #24 PRESENT ON PATIENT. WILL CONTINUE TO MONITOR
[2019-08-25 08:06] VITALS: BP 145/74
--- NOTE | 2019-08-25 08:30 | NUR ---
PATIENT SLEEPING A THIS TIME, MEAL TRAY WAS EATEN PREVIOUSLY. NO S/S OF PAIN OR DISCOMFORT, BREATHING REGULAR AND UNLABORED. WILL CONTINUE TO MONITOR
--- NOTE | 2019-08-25 12:32 | NUR ---
PATIENT AWAKE AT THIS TIME, SITTING UP EATING LUNCH, FAMILY AT BEDSIDE. FAMILY ASKING ABOUT PLAN OF CARE AND WHEN THE DR WILL SEE PATIENT. INFORMED FAMILY AND PATIENT THAT WE ARE AWAITING DR JACKSON TO ROUND ON PATIENT AND UPDATE PLAN OF CARE. CALL LIGHT WITHIN REACH
[2019-08-25 13:00] VITALS: BP 125/74
[2019-08-25 16:40] VITALS: BP 146/71
--- NOTE | 2019-08-25 18:23 | NUR ---
PATIENT COMPLAINING OF HEADACHE, FAMILY AT BEDSIDE. ADMINISTERED TYLENOL PO PER JAN. DR VILLANUEVA SAW PATIENT AND NEW ORDERS ENTERED FOR STRESS TEST. FAMILY AWARE, FAMILY STATED HTHAT OUTPATIENT RN OCCUPATIONAL IS DR MORRIS IN [place]. PATIENT STABLE A TTHIS TIME. WILL ENDORSE TO BUILDING PERFORMANCE CONSULTANT
--- NOTE | 2019-08-25 19:19 | NUR ---
PT SEEN, RESTING IN BED WITH FAMILY AT BEDSIDE, ALERT BUT CONUFSED, SLOW TO RESPONDS BUT FOLLOW SIMPLE COMMANDS, LATVIAN SPEAKING ONLY, DENIES HEADACHE OR DIZZINESS, BREATHING EVEN AND UNLABORED, LUNG SOUNDS CLEAR, ON ROOM AIR WITH NO RESP DISTRESS NOTED, ON TELE#24 NSR WITH BBB, DENIES CHEST PAIN, NO N&V NOTED, IVF INFUSING WELL, ABD SOFT WITH ACTIVE BS, NO BM AT THIS TIME, FALL PRECAUTION ON, INCONTINENT AT TIMES, NO DISTRESS NOTED, WILL KEEP TO MONITOR.
[2019-08-25 20:40] VITALS: BP 126/82
--- NOTE | 2019-08-26 06:16 | NUR ---
PT ASLEEP BUT EASILY AROUSABLE, SLEPT MOST OF NIGHT, IVF INFUSING WELL WITH 1/2 NS @ 15 ML/HR, MORNING BLOOD SUGAR: 162 MG/DL WITH 3 UNITS OF RISS, NO C/O OF CHEST PAIN SINCE BEGINNING OF SHIFT, NO DISTRESS NOTED, WILL KEEP TO MONITOR.
[2019-08-26 06:26] LABS: CALCIUM 8.5 mg/dL (8.5-10.1); CARBON DIOXIDE 26.1 mmol/L (21-32); CHLORIDE SERUM 108 mmol/L (98-107); CHOLESTEROL 142 mg/dL (<200); CHOLESTEROL/HDL RATIO 3.6; CREATININE SERUM 0.8 mg/dL (0.6-1.0); GFR1 > 60 mL/min; GLUCOSE SERUM 169 mg/dL (74-106); HDL CHOLESTEROL 39 mg/dL (40-60); MAGNESIUM 1.7 mg/dL (1.8-2.4); POTASSIUM SERUM 3.8 mmol/L (3.5-5.1); SODIUM SERUM 142 mmol/L (136-145); TRIGLYCERIDES 127 mg/dL (<150)
[2019-08-26 06:31] VITALS: BP 135/75
[2019-08-26 06:35] LABS: BASOPHIL % 0.9 % (0-2); PLATELET COUNT 162 x10^3mcL (130-400); RED CELL DISTRIBUTION WIDTH 13.7 % (11.5-14.5)
[2019-08-26 06:36] LABS: FREE T4 0.98 ng/dL (0.76-1.46)
--- NOTE | 2019-08-26 07:43 | NUR ---
RECEIVED PATIENT FROM JESUS MATAMOROS. PATIENT IN BED AT THIS TIME, MILD COMPLAINTS OF CHEST PRESSURE. WILL ADMINISTER AM PO MEDICATIONS FOR ANGINA. REMINDED PATIENT ABOUT STRESS TEST TODAY, PATIENT GESTURES UNDERSTANDING. WILL AWAIT STRESS TEST RESULTS AND FOR DR JACKSON TO ARRIVE TO SPEAK W PATIENT.
--- NOTE | 2019-08-26 08:02 | NUR ---
CALL RECEIVED FROM AND NEW ORDER RECEIVED TO CHANGE [facility] TIME FROM 1330 TO 1100. VIVIANE LEE ASSIGNED TO THIS PT MADE AWARE OF ABOVE AND TOLD ME THAT HE ALREADY NOTIFIED STAFF FROM [facility] [employer].
--- NOTE | 2019-08-26 09:05 | NUR ---
TICKETING AGENT GEETA IN FOR ECHOCARDIOGRAM. FURTHER SPOKE W PATIENT ABOUT STRESS TEST TODAY @ 1100 AND REMINDED PATIENT TO STAY NPO. PATIENT VERBALIZES UNDERSTANDING. CALL LIGHT IN REACH AT THIS TIME, ECHO BEING PERFORMED.
[2019-08-26 10:02] VITALS: BP 169/73
--- NOTE | 2019-08-26 11:32 | NUR ---
[facility] STRESS TEST DONE
[2019-08-26 12:34] VITALS: BP 150/65
--- NOTE | 2019-08-26 13:50 | NUR ---
DR JACKSON IN TO SPEAK WITH PATIENT AND . STATES THAT IF STRESS TEST IS NEGATIVE, PATIENT WILL BE ABLE TO BE DISCHARGED HOME TODAY. PATIENT AGREES AND VERBALIZES UNDERSTANDING. WILL AWAIT FOR RESULTS AND ALSO FOR DR VILLANUEVA TO EVAL PATIENT. PATIENT IN BED , NO COMPLAINTS AT THIS TIME. TOLERATING PO MEDS AND LUNCH TRAY.
--- NOTE | 2019-08-26 14:28 | NUR ---
[facility] RESULTS REPORTED TO DR VILLANUEVA VIA TELEPHONE. PER DR VILLANUEVA, PATIENT IS OK TO CLEARED FOR DISCHARGE. DISCHARGE ORDERS PLACED BY DR JACKSON. CHARGE NURSE STONE MADE AWARE, PATIENT AND FAMILY NOTIFIED.
[2019-08-26 14:39] VITALS: BP 150/65
--- NOTE | 2019-08-26 15:06 | NUR ---
DISCHARGE INSTRUCTIONS AND PACKET GIVEN TO PATIENT AND PATIENT . ALL QUESTIONS ADDRESSED. NO NEW PRESCRIPTIONS LEFT BY DR JACKSON. IV CATHETER REMOVED AND INTACT, TELEMETRY UNIT RETURNED TO [facility]. SIGNATURES OBTAINED. PATIENT W BELONGINGS ESCORTED DOWNSTAIRS VIA WHEELCHAIR ACCOMPANIED BY RYAN MARINA.
== END 2019-08-26 15:35 | disposition home or self-care (01) | DRG 199 ==
LOC: ED 18:16 → DU 21:56
PROVIDERS: Emergency Medicine; Internal Medicine; ADMIT Internal Medicine Pulmonary Disease
DX: I16.0 Hypertensive urgency (principal); G93.49 Other encephalopathy; I69.354 Hemiplegia and hemiparesis following cerebral infarction affecting left non-dominant side; I11.9 Hypertensive heart disease without heart failure; I25.10 Atherosclerotic heart disease of native coronary artery without angina pectoris; I69.398 Other sequelae of cerebral infarction; I69.322 Dysarthria following cerebral infarction; E11.9 Type 2 diabetes mellitus without complications; E78.5 Hyperlipidemia, unspecified; Z79.01 Long term (current) use of anticoagulants; Z95.5 Presence of coronary angioplasty implant and graft; Z68.21 Body mass index [BMI] 21.0-21.9, adult; Z87.442 Personal history of urinary calculi
CPT/HCPCS: 82962; 84439; A9500; G0378; J2785; J3475; Q0092

== ENCOUNTER 2019-09-11 19:29 | Emergency (ER) | payer MEDICAID ==
[~2019-09-11] VITALS: Ht 170.2 cm; Wt 60.3 kg
[2019-09-11 20:59] VITALS: BP 105/63
== END 2019-09-11 20:55 | disposition home or self-care (01) ==
LOC: ED 19:29
DX: E11.65 Type 2 diabetes mellitus with hyperglycemia (principal); I10 Essential (primary) hypertension; Z13.9 Encounter for screening, unspecified; Z87.442 Personal history of urinary calculi; Z98.890 Other specified postprocedural states
CPT/HCPCS: 82962

== ENCOUNTER 2019-10-20 17:15 | Emergency (ER) | payer MEDICAID ==
[~2019-10-20] VITALS: Ht 170.2 cm; Wt 59.1 kg
[2019-10-20 17:54] VITALS: Ht 170.2 cm; Wt 59.1 kg
[2019-10-20 20:37] LABS: CALCIUM 9.3 mg/dL (8.5-10.1); CARBON DIOXIDE 27.1 mmol/L (21-32); CHLORIDE SERUM 99 mmol/L (98-107); CREATININE SERUM 0.8 mg/dL (0.6-1.0); GFR1 > 60 mL/min; GLUCOSE SERUM 125 mg/dL (74-106); POTASSIUM SERUM 3.1 mmol/L (3.5-5.1); SODIUM SERUM 136 mmol/L (136-145)
[2019-10-20 20:39] LABS: BASOPHIL % 0.6 % (0-2); PLATELET COUNT 179 x10^3mcL (130-400); RED CELL DISTRIBUTION WIDTH 14.1 % (11.5-14.5)
[2019-10-20 20:42] LABS: ALKALINE PHOSPHATASE 79 U/L (46-116); ALT/SGPT 24 U/L (14-59); AST/SGOT 9 U/L (15-37); BILIRUBIN TOTAL 0.44 mg/dL (0.20-1.00); LIPASE 91 IU/L (73-393); TOTAL PROTEIN, SERUM 7.6 g/dL (6.4-8.2)
[2019-10-20 22:27] LABS: microscopic required? NO
[2019-10-20 22:42] LABS: UA SPECIFIC GRAVITY 1.025 (1.005-1.035); urine erythrocyte NEGATIVE (NEGATIVE)
[2019-10-20 23:11] VITALS: BP 105/64
== END 2019-10-20 23:11 | disposition home or self-care (01) ==
LOC: ED 17:15
PROVIDERS: Emergency Medicine
DX: R10.33 Periumbilical pain (principal); E87.6 Hypokalemia; I10 Essential (primary) hypertension; E11.9 Type 2 diabetes mellitus without complications; Z86.73 Personal history of transient ischemic attack (TIA), and cerebral infarction without residual deficits; Z95.818 Presence of other cardiac implants and grafts; Z87.442 Personal history of urinary calculi
CPT/HCPCS: 36415; J1885

== ENCOUNTER 2019-10-21 12:35 | Emergency (ER) | payer MEDICAID ==
[~2019-10-21] VITALS: Ht 167.6 cm; Wt 59.0 kg
[2019-10-21 13:18] VITALS: Ht 167.6 cm; Wt 59.0 kg
[2019-10-21 15:27] LABS: BASOPHIL % 0.4 % (0-2); PLATELET COUNT 176 x10^3mcL (130-400); RED CELL DISTRIBUTION WIDTH 13.7 % (11.5-14.5)
[2019-10-21 15:50] LABS: CARBON DIOXIDE 28.8 mmol/L (21-32); CHLORIDE SERUM 103 mmol/L (98-107); CREATININE SERUM 0.8 mg/dL (0.6-1.0); GFR1 > 60 mL/min; GLUCOSE SERUM 208 mg/dL (74-106); POTASSIUM SERUM 3.9 mmol/L (3.5-5.1); SODIUM SERUM 141 mmol/L (136-145)
[2019-10-21 15:55] LABS: ALKALINE PHOSPHATASE 79 U/L (46-116); ALT/SGPT 23 U/L (14-59); AST/SGOT 16 U/L (15-37); BILIRUBIN TOTAL 0.5 mg/dL (0.20-1.00); TOTAL PROTEIN, SERUM 7.6 g/dL (6.4-8.2)
[2019-10-21 18:28] VITALS: BP 133/63
== END 2019-10-21 18:28 | disposition home or self-care (01) ==
LOC: ED 12:35
PROVIDERS: Specialist
DX: R10.9 Unspecified abdominal pain (principal); R47.02 Dysphasia; I10 Essential (primary) hypertension; E11.9 Type 2 diabetes mellitus without complications; Z86.73 Personal history of transient ischemic attack (TIA), and cerebral infarction without residual deficits; Z87.442 Personal history of urinary calculi; Z98.890 Other specified postprocedural states
CPT/HCPCS: 36415; J1885